=== PATIENT | female | born 1935 | race Caucasian/White ===

== ENCOUNTER 2019-01-02 09:36 | Observation (INO) | payer MEDICARE, OTHER ==
[2019-01-02 11:32] LABS: Troponin I Less than 0.010 ng/mL (< 0.028)
[2019-01-02] MEDS ORDERED: Acetaminophen 650 MG Suppository PR PRN (13:51)
[2019-01-02] MEDS ORDERED: Acetaminophen 325 MG TAB PO PRN (13:51)
[2019-01-02] MEDS ORDERED: Sodium Chloride 0.9% 1,000 ML IV SCH (14:00)
[2019-01-02] MEDS ORDERED: Nitroglycerin 2% Ointment 1 INCH/1 GM Packet ONE (14:19)
--- NOTE | 2019-01-02 15:20 | HP ---
PRIMARY CARE PHYSICIAN: Dr. Cardona. CHIEF COMPLAINT: Generalized weakness and left-sided chest discomfort. HISTORY OF PRESENT ILLNESS: Ms. Robbins is a very pleasant 83-year-old woman, who lives at home with her family and presents complaining of discomfort on the left side of her chest and back since yesterday. The patient states it is worse with movement and she finds it difficult to characterize the pain, also unable to give a severity. It shows generalized discomfort on the left side of her chest to left lateral rib cage and left shoulder, reports some discomfort in her left arm. Also, has some discomfort in the left side of her back. She reported per the ED notes that there was a heavy pressure. She states she has felt generally unwell since yesterday and feels thirsty, but has been drinking as much water as possible since yesterday. She has been around her sick daughter and grandson, who have been unwell with flu-like symptoms. She states she feels she caught whatever virus they had and has had a mild cough productive for foamy sputum. Denies having any fevers, but has had chills. Denies any hemoptysis. No shortness of breath. She underwent laboratory studies, which demonstrated a white count of 11.2, hemoglobin 14, hematocrit 43.5, platelets 309, neutrophils 69%. A D-dimer was done, which was negative. Potassium was 4.0. Sodium 143, potassium 3.9, BUN 16, creatinine 1.06, GFR 50 compared to 70s a few years ago. Glucose was 103, calcium 9.9. LFTs unremarkable. BNP normal at 98.7. Lipase normal. In the emergency department, she had an EKG done, which showed normal sinus rhythm with heart rate of 83. There is an incomplete right bundle-branch block with no ST changes or T-wave abnormalities. This was per EKG done at [facility]. A chest x-ray was done as well showing chronic interstitial changes, otherwise no acute intrathoracic abnormalities. Per [facility] ED notes, the patient was hypertensive with a blood pressure of 194/97 and she was given Lopressor 5 mg as well as aspirin 324 mg and a dose of nitroglycerin. Her blood pressure did improve in the emergency department here, she has received no additional treatment. Troponins were trended further and second troponin was negative. REVIEW OF SYSTEMS: Apart from what is mentioned above in history of present illness, the patient does report feeling generally achy. States that the discomfort on the left side of her chest and back is "sore." Also, reports having a sore throat for the last couple of days. All other review of systems are negative. PAST MEDICAL HISTORY: 1. Hypertension. 2. Chronic gastritis. 3. GERD. 4. Cataracts. 5. History of shingles in the past. 6. Osteoarthritis. 7. Chronic bronchitis. 8. Hyperlipidemia. PAST SURGICAL HISTORY: 1. Cataract surgery. 2. Ovarian tumor removed. 3. Salas cyst in the right knee. 4. Appendectomy. 5. Cholecystectomy. 6. Hysterectomy. 7. Tonsillectomy. SOCIAL HISTORY: The patient lives with her family. She denies any tobacco use, alcohol consumption, or illicit drug use. She normally mobilizes with the help of a walker. ALLERGIES: LEVAQUIN, PENICILLIN, RELAFEN. CURRENT MEDICATIONS: 1. Diltiazem 240 mg extended release 1 tablet by mouth daily. 2. Famotidine 20 mg p.o. daily. 3. Aspirin 81 mg p.o. daily. PHYSICAL EXAMINATION: GENERAL: The patient appears thin, well developed, and in no acute distress. She is resting comfortably on the stretcher. Does report mild discomfort in her back due to lying on the stretcher. VITAL SIGNS: Temperature 97.8, pulse 76, blood pressure 144/88, respirations 14, O2 sats 98% on room air. HEENT: Normocephalic, atraumatic. Pupils are equal, round, and reactive to light. Sclerae without icterus. Oropharynx is clear. Oral mucosa is dry. No posterior pharynx exudates or erythema. NECK: Supple. Full range of motion. No lymphadenopathy. LUNGS: Clear to auscultation bilaterally without any wheezes, rales, or rhonchi. CARDIAC: Regular rate and rhythm. Mild discomfort with palpation to the left side of her chest as well as lateral rib cage and especially the left posterior back with palpation. The patient reports feeling "sore." No bony deformities or bruising. No skin changes. ABDOMEN: Soft, nondistended. Mild suprapubic discomfort with palpation. No guarding or rigidity. No renal angle tenderness. EXTREMITIES: No lower leg swelling or edema. No calf tenderness. NEUROLOGIC: Alert and oriented x3. No neuro deficits. SKIN: Warm and dry. INVESTIGATIONS: As mentioned above in HPI. IMPRESSION AND PLAN: Ms. Robbins is a very pleasant 83-year-old woman, who is being admitted for management of the following; 1. Acute coronary syndrome rule out. The patient complained of left-sided chest pain described as substernal pressure while she was at [facility]. She underwent a troponin, which is negative x2. EKG unremarkable. We will continue to trend troponins. She does have a history of hyperlipidemia and hypertension. The pain does seem to be musculoskeletal in nature. We will consult Cardiology for formal assessment versus stress test in the morning. The patient is unsure when her last cardiac investigations were, she is normally seen at [facility]. 2. General malaise. The patient with flu-like symptoms. Mild leukocytosis. We will add lactic acid and procalcitonin to her labs. We will also check respiratory viral panel. 3. Suprapubic discomfort. On exam, she did have some suprapubic discomfort, and upon further questioning, she stated she is not urinating as frequently as normal, but urinating large amounts at a time without any dysuria. We will obtain urinalysis and urine culture. Hold off on antibiotics, pending results of her workup. 4. Hypertension. Monitor blood pressure and resume home medications once verified. 5. Hyperlipidemia. Resume home medications. 6. Gastrointestinal prophylaxis. The patient with a history of GERD and normally famotidine. We will continue famotidine 10 mg p.o. b.i.d. 7. Deep venous thrombosis prophylaxis. Mechanical SCDs. PT/OT consult requested, given her general weakness. 8. Code status, full. Her surrogate decision maker is her son, Rashid Garvey. The patient's case to be discussed further with Dr. Briseno for further recommendations. Job ID: [id number]
[2019-01-02 15:58] VITALS: BMI 25.7
[2019-01-02 16:42] LABS: Lactic Acid 0.7 mmol/L (0.5-2.2)
[2019-01-02 16:53] LABS: Troponin I 0.027 ng/mL (< 0.028)
[2019-01-02] MEDS ORDERED: hydrALAZINE 20 MG/ML VIAL SLOW IVP PRN (20:09)
[2019-01-02] MEDS: Famotidine 20 MG TAB PO SCH (20:28)
[2019-01-03 01:19] LABS: Bacteria/HPF None Seen HPF (None Seen); Bilirubin Negative (Negative); Blood, Urine Negative (Negative); Clarity Clear (Clear); Glucose, Urine (Dipstick) Normal (Negative); Leukocyte Negative Leu/uL (Negative); Nitrite Negative (Negative); Protein, Urine (Dipstick) Negative (Neg-Trace); RBC/HPF 0-3 HPF (0-3); Squamous Epithelial 0-3 HPF (0-3); Urobilinogen Normal mg/dL (Less than 2); WBC/HPF 0-3 HPF (0-3)
[2019-01-03 01:23] LABS: Urine Culture Reflex No No
[2019-01-03 08:39] LABS: #Basophils 0.1 thou/uL (0.0-0.2); #Eosinphils 0.1 thou/uL (0.0-0.7); #Lymphocytes 1.7 thou/uL (1.20-3.40); #Monocytes 0.9 thou/uL (0.11-0.59); #Neutrophils 7.6 thou/uL (1.40-6.50); %Basophils 0.8 % (0.0-1.0); %Eosinophils 1.3 % (0.0-10.0); %Lymphocytes 16.2 % (21.0-51.0); %Monocytes 8.5 % (0.0-10.0); %Neutrophils 73.2 % (42.0-75.0); Hemoglobin 13.2 g/dL (12.0-16.0); Mean Corpuscular HGB CONC 32.6 g/dL (32.0-36.0); Mean Corpuscular Hemoglobin 30.6 pg (27.0-31.0); Mean Corpuscular Volume 93.9 fL (78.0-98.0); Mean Platelet Volume 8.3 fL (7.4-10.4); Platelet Count 314 thou/uL (130-400); RBC Distribution Width 11.9 % (11.5-14.5); Red Blood Cell (RBC) Count 4.32 mill/uL (4.20-5.40); White Blood Cell (WBC) Count 10.3 thou/uL (4.8-10.8)
[2019-01-03] MEDS ORDERED: Aspirin 81 mg Enteric Coated Tablet PO SCH (09:00)
[2019-01-03 09:04] LABS: Anion Gap 10 mmol/L (10-20); BUN (Urea Nitrogen) 15 mg/dL (9.8-20.1); Calc. Creatinine Clearance 60 mL/min (70-130); Calcium 9.6 mg/dL (7.8-10.44); Carbon Dioxide 30 mmol/L (23-31); Cardiac Risk 2.2 (Less than 4.5); Chloride 105 mmol/L (98-107); Cholesterol 183 mg/dl (< 200 Desired); Estimated GFR-MDRD 64; Glucose 70 mg/dL (83-110); HDL Cholesterol 82 mg/dL (>60 Neg Risk); LDL Cholesterol, Calculated 92 mg/dL; Potassium 3.9 mmol/L (3.5-5.1); Sodium 141 mmol/L (136-145); Triglycerides 46 mg/dL (Less than 150)
[2019-01-03] MEDS ORDERED: ADENOSINE 60 MG/20 ML VIAL ONE (11:29)
[2019-01-03 14:26] VITALS: BP 150/78; TEMP 96.4
[2019-01-03] MEDS: Famotidine 20 MG TAB PO SCH (14:28)
--- NOTE | 2019-01-03 14:56 | NM ---
Nuclear medicine myocardial perfusion scan: 01/03/2019 COMPARISON: None HISTORY: Chest pain, history of hypertension and elevated cholesterol levels TECHNIQUE: SPECT imaging of the left ventricular myocardium obtained during stress and rest following the intravenous administration of 30 and 9.8mCi technetium 99 M labeled sestamibi respectively. FINDINGS: No discrete fixed or reversible defect. TID is 1.1. Left ventricular wall motion appears within normal limits. End-diastolic volume is 56 mL and end systolic volume is 18 mL. Left ventricular ejection fraction is estimated at 69%. IMPRESSION: No discrete reversible defect. Normal left ventricular wall motion. Estimated LVEF of 69%.
--- NOTE | 2019-01-03 17:29 | DIS ---
DATE OF ADMISSION: 01/02/2019 DATE OF DISCHARGE: 01/03/2019 DISCHARGE DISPOSITION: Home. PRIMARY DISCHARGE DIAGNOSES: 1. Chest pain, resolved. 2. Upper respiratory viral infection with rhinovirus. SECONDARY DISCHARGE DIAGNOSES: 1. Hypertension. 2. Dyslipidemia. PROCEDURES DONE DURING HOSPITALIZATION: Troponin x3 negative. Nuclear stress test done showed no reversible defect, had normal wall motion, ejection fraction was 69%. Hemoglobin 13, hematocrit 40, platelet count 314 with 73% neutrophils. Total cholesterol 183, triglycerides 46, LDL 92, HDL 82. TSH 1.70. UA was negative for any infection. Respiratory virus panel PCR was positive for rhinovirus. DISCHARGE MEDICATIONS: 1. Aspirin 81 mg p.o. daily. 2. Cardizem CD 240 mg p.o. daily. 3. Pepcid 20 mg twice daily. ALLERGIES: 1. LEVAQUIN. 2. PENICILLIN. 3. NABUMETONE. DISCHARGE PLAN: The patient to follow up with her primary care physician, Dr. Cardona, in 1 week. BRIEF COURSE DURING HOSPITALIZATION: The patient initially came in with complaints of generalized body aches and left-sided chest pain. She has had 3 sets of troponin done which were negative. Nuclear stress test done was negative as well. Respiratory virus panel PCR was positive for rhinovirus. The patient likely had acute viral illness with rhinovirus. She is hemodynamically stable and tolerating solid food prior to discharge. She lives with her daughter. She ambulates with a rolling walker. She has remained hemodynamically stable and will be shortly discharged to home. The patient needs to follow up with her primary care physician, Dr. Cardona, in 1 week. Please note I have seen and examined the patient on the day of discharge. Job ID: [id number] [facility]
--- NOTE | 2019-01-10 21:55 | EKG ---
Test Reason : Blood Pressure : / mmHG Vent. Rate : 065 BPM Atrial Rate : 065 BPM P-R Int : 184 ms QRS Dur : 096 ms QT Int : 392 ms P-R-T Axes : 064 -45 026 degrees QTc Int : 407 ms Normal sinus rhythm Incomplete right bundle branch block Left anterior fascicular block Abnormal ECG Confirmed by AUSTYN TATE DO ([id number]), editor news MAX REZA ([id number]) on 01/10/2019 9:54:33 PM Referred By: Confirmed By:AUSTYN TATE DO
== END 2019-01-03 16:27 | disposition home or self-care (01) ==
LOC: ERS 09:36 → ERHOLD 11:44 → 2SW 15:27
PROVIDERS: ADMIT Internal Medicine; ATTEND Emergency Medicine
DX: J06.9 Acute upper respiratory infection, unspecified (principal); R07.2 Precordial pain; B97.89 Other viral agents as the cause of diseases classified elsewhere; R53.81 Other malaise; I10 Essential (primary) hypertension; M19.90 Unspecified osteoarthritis, unspecified site; E78.5 Hyperlipidemia, unspecified; K29.50 Unspecified chronic gastritis without bleeding; R10.2 Pelvic and perineal pain; J42 Unspecified chronic bronchitis; Z79.82 Long term (current) use of aspirin; Z79.899 Other long term (current) drug therapy; Z88.0 Allergy status to penicillin; Z88.1 Allergy status to other antibiotic agents; Z88.8 Allergy status to other drugs, medicaments and biological substances
CPT/HCPCS: 78452; 80048; 80061; 81001; 83605; 83735; 84145; 84443; 84484; 85025; 87633; 93005; 93017; 94760; 96361 ×2; 96374; 97139; 99285; A9500; G0378 ×3; 36415; J0153; J0360

== ENCOUNTER 2019-02-20 16:43 | Inpatient (IN) | payer MEDICARE ==
[2019-02-20 17:19] LABS: #Eosinphils 0.1 thou/uL (0.0-0.7); #Lymphocytes 1.5 thou/uL (1.20-3.40); #Monocytes 0.9 thou/uL (0.11-0.59); #Neutrophils 8.2 thou/uL (1.40-6.50); %Basophils 0.3 % (0.0-1.0); %Eosinophils 1.1 % (0.0-10.0); %Lymphocytes 13.8 % (21.0-51.0); %Monocytes 8.5 % (0.0-10.0); %Neutrophils 76.4 % (42.0-75.0); Hemoglobin 13.2 g/dL (12.0-16.0); Mean Corpuscular HGB CONC 31.6 g/dL (32.0-36.0); Mean Corpuscular Hemoglobin 29.5 pg (27.0-31.0); Mean Corpuscular Volume 93.5 fL (78.0-98.0); Mean Platelet Volume 7.3 fL (7.4-10.4); Platelet Count 361 thou/uL (130-400); RBC Distribution Width 12.1 % (11.5-14.5); Red Blood Cell (RBC) Count 4.48 mill/uL (4.20-5.40); White Blood Cell (WBC) Count 10.7 thou/uL (4.8-10.8)
[2019-02-20 17:44] LABS: ALT (SGPT) 11 U/L (8-55); AST (SGOT) 14 U/L (5-34); Albumin 3.8 g/dL (3.4-4.8); Alkaline Phosphatase 122 U/L (40-110); Anion Gap 13 mmol/L (10-20); BUN (Urea Nitrogen) 15 mg/dL (9.8-20.1); Bilirubin, Total 0.3 mg/dL (0.2-1.2); Calc. Creatinine Clearance 0 mL/min (70-130); Calcium 9.4 mg/dL (7.8-10.44); Carbon Dioxide 28 mmol/L (23-31); Chloride 104 mmol/L (98-107); Estimated GFR-MDRD 66; Globulin 3.2 g/dL (2.4-3.5); Glucose 85 mg/dL (83-110); Potassium 3.9 mmol/L (3.5-5.1); Sodium 141 mmol/L (136-145)
--- NOTE | 2019-02-20 17:45 | RAD ---
Chest AP view INDICATION: Preop evaluation COMPARISON: January 02, 2019 FINDINGS: Lungs:COPD changes stable Cardiac silhouette:Mild cardiomegaly is stable. Pulmonary vasculature:Normal Pleural spaces:No pleural effusion or pneumothorax is demonstrated. Upper abdomen:No abnormality seen. Osseous structures: No acute osseous abnormality. Additional findings:None. IMPRESSION: Stable exam. No acute cardiopulmonary abnormality.
--- NOTE | 2019-02-20 18:37 | RAD ---
PELVIS ONE VIEW: 02/20/19 HISTORY: Fall. COMPARISON: CT lower extremity same day. FINDINGS: There is a right sacral fracture through what appears to be S3. The right femoral head and neck are i ntact. The obturator rings are intact. IMPRESSION: Findings suspicious for right sacral fracture of S3. POS: HOME
[2019-02-20] MEDS ORDERED: Dextrose 5% in Water 1,000 ML IV PRN (18:54)
[2019-02-20] MEDS ORDERED: hydrALAZINE 20 MG/ML VIAL SLOW IVP PRN (18:54)
[2019-02-20] MEDS ORDERED: HumaLOG 300 UNITS/3 ML VIAL SC PRN (18:54)
[2019-02-20] MEDS ORDERED: Dextrose 50% Abboject 50 ML SYRINGE SLOW IVP PRN (18:54)
--- NOTE | 2019-02-20 20:01 | HP ---
REQUESTING PHYSICIAN: Dr. Henny Bowles. CONSULTING PHYSICIAN: Dr. Mendes. ATTENDING PHYSICIAN: Eder Montana HISTORY OF PRESENT ILLNESS: Ms. Robbins is an 83-year-old female, who presents to the ED with right hip pain. The patient reports she fell approximately 2 weeks ago from a couch, hit her right hip on the floor. However, after that the patient still be able to walk around using walker with minimal pain and discomfort until yesterday, the patient experienced pain from the right hip, pain is getting worse with movement and sometimes, the patient is unable to bear weight, which urged her to seek medical advice. Upon arrival, the patient is alert, awake, GCS 15. Vital signs stable. Complains of right hip pain. REVIEW OF SYSTEMS: Noncontributory except per HPI. PAST MEDICAL HISTORY: Hypertension. PAST SURGICAL HISTORY: Includes cholecystectomy, tonsillectomy, cataract surgery, ovarian tumor removal. SOCIAL HISTORY: The patient lives at home. Denies smoking. Denies drinking alcohol and denies drug use. ALLERGIES: LEVAQUIN, LEVOFLOXACIN, AND PENICILLIN. CURRENT MEDICATIONS: Diltiazem 240 daily, famotidine, and aspirin 81 mg once a day. PHYSICAL EXAMINATION: GENERAL: The patient is lying in bed, comfortable with no acute respiratory distress. SKIN: Hall. Mucous moist. VITAL SIGNS: Heart rate is 92, respiratory rate 18, temperature 98, blood pressure 184/123, O2 saturation 95% on room air. HEENT: Atraumatic. No bruising. Nontender to palpation. Pupil 3 mm, reactive to light and equal bilaterally. NECK: Trachea midline. No tenderness to palpation. CHEST: Atraumatic, no crepitus, no bruising. LUNGS: Clear bilaterally. HEART: Regular rate and rhythm. ABDOMEN: Soft, nondistended. EXTREMITIES: Neurovascularly intact x4. Right hip pain and limited range of motion due to pain. NEUROLOGIC: No focal neurology deficits. DIAGNOSTIC STUDIES: X-ray of the right hip show right hip fracture, nondisplaced. ASSESSMENT: 1. Status post ground level fall with late presentation. 2. Right hip fracture. 3. History of hypertension. PLAN: The patient will be admitted to [place] [id number] for pain control, DVT, and gastritis prophylaxis. The patient will be n.p.o. at midnight. Dr. Mendes with the patient to the OR tomorrow for right hip fixation. After the surgery, the patient will be working with PT, OT. Anticipate placement in rehabilitation facility. Job ID: [id number] MTDD
[2019-02-20] MEDS: Famotidine/PF 20 mg/2ml Vial SLOW IVP SCH (21:40)
[2019-02-20] MEDS: Sodium Chloride 0.9% 1,000 ML IV SCH ×2 (21:41)
[2019-02-20] MEDS: traMADol HCl 50 MG TAB PO PRN (21:42)
[2019-02-20] MEDS: Senokot S 8.6-50 MG TAB PO SCH (21:43)
[2019-02-20] MEDS: Gabapentin 100 MG CAP PO SCH (21:43)
[2019-02-20 22:55] VITALS: BMI 25.5
[2019-02-21] MEDS: Acetaminophen 500 MG TAB PO SCH ×5 (00:05→23:51)
[2019-02-21] MEDS: Sodium Chloride 0.9% 1,000 ML IV SCH ×3 (06:09→12:49)
[2019-02-21] MEDS ORDERED: Morphine 2 MG/ML SYRINGE SLOW IVP PRN (07:57)
[2019-02-21] MEDS: Gabapentin 100 MG CAP PO SCH ×4 (08:26→20:11)
[2019-02-21] MEDS: Famotidine/PF 20 mg/2ml Vial SLOW IVP SCH ×2 (08:26→20:09)
[2019-02-21] MEDS: Polyethylene Glycol 3350 17 GM Packet PO SCH (08:35)
[2019-02-21] MEDS: Senokot S 8.6-50 MG TAB PO SCH ×3 (08:35→20:12)
[2019-02-21] MEDS ORDERED: Clindamycin/D5W 900 mg/50 ml Premix Bag ONE (10:06)
[2019-02-21] MEDS ORDERED: Midazolam HCl 2 mg/2 ml Vial ONE (10:09)
[2019-02-21] MEDS ORDERED: Fentanyl 100 MCG/2 ML VIAL ONE ×2 (10:46→12:21)
[2019-02-21] MEDS ORDERED: Phenylephrine HCL 10 MG/ML VIAL ONE (10:47)
[2019-02-21] MEDS ORDERED: Neomycin-Polymyxin 1 ML AMP ONE (10:50)
[2019-02-21] MEDS ORDERED: Promethazine HCl 25 MG/ML VIAL IM PRN (11:39)
[2019-02-21] MEDS ORDERED: PACU-Morphine 4MG/ML VIAL SLOW IVP PRN (11:39)
[2019-02-21] MEDS ORDERED: Promethazine HCl 25 MG/ML VIAL SLOW IVP PRN (11:39)
[2019-02-21] MEDS ORDERED: Ondansetron HCl/PF 4 MG/2 ML Vial IVP PRN (11:39)
[2019-02-21] MEDS ORDERED: Ondansetron ODT 4 MG TAB PO PRN (11:47)
[2019-02-21] MEDS ORDERED: Bisacodyl 10 MG SUPP PR PRN (11:47)
[2019-02-21] MEDS ORDERED: Cepastat Lozenges 1 LOZ PO PRN (11:47)
[2019-02-21] MEDS ORDERED: Fleet Enema 133 ML BOT PR PRN (11:47)
[2019-02-21] MEDS ORDERED: Ondansetron PF 4 MG/2 ML Vial IVP PRN (11:47)
[2019-02-21] MEDS ORDERED: Milk Of Magnesia 30 ML UDCUP PO PRN (11:47)
[2019-02-21] MEDS ORDERED: SUGAMMADEX SODIUM 200 MG/2 ML VIAL ONE (11:48)
[2019-02-21] MEDS ORDERED: PROPOFOL 200 MG/20 ML VIAL ONE (11:55)
[2019-02-21] MEDS ORDERED: Rocuronium Bromide 10 MG/ML (10ML VIAL) ONE (11:55)
[2019-02-21] MEDS ORDERED: Glycopyrrolate 0.2 MG/ML 5 ML SYRINGE ONE (11:55)
[2019-02-21] MEDS ORDERED: Lidocaine 1% PF 5 ML VIAL ONE (11:55)
[2019-02-21] MEDS: Ketorolac Tromethamine 30 MG/ML VIAL IVP SCH ×3 (12:46→23:51)
[2019-02-21] MEDS: Ondansetron PF 4 MG/2 ML Vial IVP PRN (12:46)
[2019-02-21] MEDS: Clindamycin/D5W 900 MG in Premix Bag 1 BAG IVPB SCH ×2 (12:47→18:46)
--- NOTE | 2019-02-21 16:05 | OP ---
DATE OF PROCEDURE: 02/21/2019 PREOPERATIVE DIAGNOSIS: Impacted femoral neck fracture of the right hip. POSTOPERATIVE DIAGNOSIS: Impacted femoral neck fracture of the right hip. PROCEDURE PERFORMED: Multiple pinning of impacted femoral neck fracture of the right hip. ANESTHESIA: General. DESCRIPTION OF PROCEDURE: The patient was given preoperative IV antibiotics, taken to the operating room, placed in the supine position on the fracture table. Satisfactory general anesthesia was performed. C-arm verified good alignment of the impacted subcapital femoral neck fracture in the lateral aspect of the right hip and thigh was sterilely prepped. A 2-cm incision was made on the lateral aspect of the thigh and under fluoroscopic visualization, two guide pins were placed up through the lateral cortex and through the femoral neck and into the femoral head. Appropriate size screws were measured and the 6.5 cannulated screws were inserted with good fixation in the bone. It was made sure that the tips of the screws were within the femoral head using the C-arm in AP and lateral planes while maximally internally and externally rotating the hip. The guide pins were removed. The wound was irrigated and then closed using 2-0 Vicryl for the fatty layer and the skin was closed with 3-0 Rapide. Sterile dressing was applied. The patient was taken off the fracture table. She was awakened, extubated, and transferred to recovery room in stable condition. ESTIMATED BLOOD LOSS: Minimal. COMPLICATIONS: None. Job ID: [id number]
[2019-02-21] MEDS: Ferrous Gluconate 324 MG TAB PO SCH (20:09)
[2019-02-21] MEDS: Famotidine 20 MG TAB PO SCH (20:11)
[2019-02-21] MEDS ORDERED: Prevnar 13-Val Conj/PF 0.5 ML SYRINGE IM ONE (21:00)
[2019-02-21] MEDS ORDERED: FLU VACC TS2019-20(65YR UP)/PF 180 MCG/0.5 ML SYRINGE IM ONE (21:00)
[2019-02-22] MEDS: Sodium Chloride 0.9% 1,000 ML IV SCH ×4 (00:52→20:58)
[2019-02-22 05:12] LABS: Hemoglobin 11.8 g/dL (12.0-16.0); Mean Corpuscular HGB CONC 32.5 g/dL (32.0-36.0); Mean Corpuscular Hemoglobin 30.9 pg (27.0-31.0); Platelet Count 321 thou/uL (130-400); Red Blood Cell (RBC) Count 3.81 mill/uL (4.20-5.40); White Blood Cell (WBC) Count 9.9 thou/uL (4.8-10.8)
[2019-02-22] MEDS: Ketorolac Tromethamine 30 MG/ML VIAL IVP SCH ×2 (05:30→12:00)
[2019-02-22] MEDS: Acetaminophen 500 MG TAB PO SCH ×4 (05:30→23:38)
--- NOTE | 2019-02-22 06:00 | PRG ---
DATE OF SERVICE: 02/22/2019 SUBJECTIVE: The patient is currently on the surgical floor. She is status post ground level fall who presented delayed fashion. The original injury may have been as long as two weeks ago. Today, she underwent open reduction and internal fixation of her impacted femoral neck fracture of the right hip. Procedure was multiple pinning. She tolerated this procedure well. Postoperatively, the nurses report no issues. Her vital signs remained stable. She did take some liquids and reports that her pain is controlled. OBJECTIVE: VITAL SIGNS: Stable. The patient is afebrile. GENERAL: The patient is resting comfortably in bed. She appears in no distress. Her respirations appear nonlabored. Her postop dressing is clean, dry, and intact. She was asleep, and I did not awaken her for an exam. ASSESSMENT: 1. Status post ground level fall with delayed presentation. 2. Status post multiple pinning of impacted femoral neck fracture of right hip. 3. History of hypertension. PLAN: Plan will be to continue supportive care. Encourage physical and occupational therapy and discuss placement. Job ID: [id number]
[2019-02-22] MEDS: Multivitamin W/ Minerals 1 TAB PO SCH (08:52)
[2019-02-22] MEDS: Famotidine 20 MG TAB PO SCH ×2 (08:52→20:13)
[2019-02-22] MEDS: Ferrous Gluconate 324 MG TAB PO SCH ×2 (08:52→20:14)
[2019-02-22] MEDS: Gabapentin 100 MG CAP PO SCH ×3 (08:53→20:14)
[2019-02-22] MEDS: Polyethylene Glycol 3350 17 GM Packet PO SCH (08:53)
[2019-02-22] MEDS: Senokot S 8.6-50 MG TAB PO SCH ×4 (08:53→20:14)
[2019-02-22] MEDS: Famotidine/PF 20 mg/2ml Vial SLOW IVP SCH (08:57)
[2019-02-22] MEDS ORDERED: Aspirin 81 mg Enteric Coated Tablet PO SCH (09:00)
--- NOTE | 2019-02-22 12:46 | PRG ---
DATE OF SERVICE: 02/22/2019 SUBJECTIVE: Ms. Robbins is an 83-year-old female, status post ground level fall. She sustained impacted right hip fracture. She underwent ORIF of right hip fracture yesterday with Orthopedic, Dr. Mendes. Postop, the patient reports pain is well controlled. She is able to walk around the floor with Physical Therapy. Vital signs are stable. Her urine is adequate, but she has not yet had bowel. She tolerated her regular diet. OBJECTIVE: GENERAL: The patient is lying in bed comfortable with no acute respiratory distress. VITAL SIGNS: Stable. LUNGS: Clear bilaterally. HEART: Regular rate and rhythm. ABDOMEN: Soft and nondistended. EXTREMITIES: Right hip postop dressing clean, dry, and intact. ASSESSMENT: 1. Status post ground level fall with delayed presentation. 2. Right impacted femoral neck fracture, status post open reduction and internal fixation of right hip fracture. 3. History of hypertension, stable. PLAN: Will be to continue supportive care. Continue pain control. Continue DVT prophylaxis. Anticipate placement in rehabilitation facility. Job ID: [id number]
[2019-02-22] MEDS: traMADol HCl 50 MG TAB PO PRN (15:54)
--- NOTE | 2019-02-22 18:41 | RAD ---
EXAM: XR Hip Rt 2-3 View DATE: 02/21/2019 12:00 AM INDICATION: Right hip pinning COMPARISON: CT of the pelvis dated February 20, 2019 FINDING: Since the comparison examination there is an interval percutaneous pinning of the nondispla willard right femoral neck fracture. Total fluoroscopic time was 83.8 seconds. 2 fluoroscopic spot images of the right hip were submitted for interpretation. IMPRESSION:Percutaneous pinning of the nondisplaced right femoral neck fracture.
[2019-02-22] MEDS: Aspirin 81 mg Enteric Coated Tablet PO SCH (20:14)
--- NOTE | 2019-02-22 20:50 | PRG ---
DATE OF SERVICE: 02/22/2019 SUBJECTIVE: Ms. Robbins underwent multiple pinning of an impacted right femoral neck fracture yesterday. The patient states that she has very little pain. She was able to ambulate in her room with physical therapy this morning. OBJECTIVE: VITAL SIGNS: Latest vital signs show the patient is afebrile, pulse 73, respiratory rate 18, blood pressure 168/96. LABORATORY DATA: Hemoglobin 11.8, hematocrit 36.2. PLAN: The patient will continue to work with Physical and Occupational Therapy. I discussed with the patient and her family her post hospitalization plans. They feel that if she continues to do as well as she has today that she may want to go home with home physical therapy. The other alternative would be to go to a correction facility for a while. Job ID: [id number]
--- NOTE | 2019-02-23 02:11 | PRG ---
DATE OF SERVICE: 02/23/2019 SUBJECTIVE: The patient is currently on the surgical floor. She is status post multiple pinning of a right femoral neck fracture. She has been working and progressing well with therapy and by report, she is likely to be discharged home with home health. Her pain is controlled. She is tolerating a diet. PHYSICAL EXAMINATION: VITAL SIGNS: Stable. The patient is afebrile. GENERAL: The patient is currently resting in bed. She is asleep. I did not waking her for exam. She appears comfortable and her respirations appear nonlabored. ASSESSMENT: 1. Status post ground level fall with delayed presentation. 2. Status post multiple pinning of impacted right femoral neck fracture. 3. History of hypertension. PLAN: Plan will be to continue supportive care. Encourage physical and occupational therapy and await final placement decision. The patient will follow up with Dr. Mendes per his instructions. Job ID: [id number]
[2019-02-23] MEDS: Acetaminophen 500 MG TAB PO SCH ×4 (05:47→23:20)
[2019-02-23] MEDS: traMADol HCl 50 MG TAB PO PRN (06:00)
[2019-02-23] MEDS: Sodium Chloride 0.9% 1,000 ML IV SCH ×2 (06:47→12:26)
[2019-02-23] MEDS ORDERED: Labetalol HCl 100 MG/20 ML VIAL SLOW IVP SCH (08:15)
[2019-02-23] MEDS: Aspirin 81 mg Enteric Coated Tablet PO SCH ×2 (08:25→20:35)
--- NOTE | 2019-02-23 08:55 | PRG ---
DATE OF SERVICE: 02/21/2019 SUBJECTIVE: Ms. Robbins is an 83-year-old female, status post ground level fall. She sustained right hip fracture. Currently, the patient in the surgical floor for pain control, DVT and gastritis prophylaxis. Await for right hip fracture fixation with Orthopedic. The patient reports pain is well controlled. She was n.p.o. and her vital signs x2 have been stable. She voiced no concern. OBJECTIVE: GENERAL: Currently, the patient is lying in bed, comfortable with no acute respiratory distress. VITAL SIGNS: Temperature is 97.5, heart rate 73, respiratory rate 18, O2 saturation 95% on room air, and blood pressure is 171/90. LUNGS: Clear bilaterally. HEART: Regular rate and rhythm. ABDOMEN: Soft, nondistended. EXTREMITIES: Neurovascularly intact x4. NEUROLOGY: No focal neurology deficits. ASSESSMENT: 1. Status post ground level fall with delayed presentation. 2. Right impacted femoral neck fracture. 3. History of hypertension. PLAN: We will continue supportive care. Continue pain control. N.p.o. for now. After the surgery, the patient will be working with PT, OT. Anticipate placement in rehabilitation facility. Job ID: [id number]
[2019-02-23] MEDS: Ondansetron PF 4 MG/2 ML Vial IVP PRN (10:12)
[2019-02-23] MEDS: Ferrous Gluconate 324 MG TAB PO SCH ×2 (12:25→20:35)
[2019-02-23] MEDS: Gabapentin 100 MG CAP PO SCH ×3 (12:25→20:37)
[2019-02-23] MEDS: Multivitamin W/ Minerals 1 TAB PO SCH (12:26)
[2019-02-23] MEDS: Polyethylene Glycol 3350 17 GM Packet PO SCH (12:26)
[2019-02-23] MEDS: Senokot S 8.6-50 MG TAB PO SCH ×2 (12:26→20:37)
[2019-02-23] MEDS: Famotidine 20 MG TAB PO SCH ×2 (16:34→20:35)
--- NOTE | 2019-02-23 17:43 | PRG ---
DATE OF SERVICE: 02/23/2019 SUBJECTIVE: Ms. Robbins is an 83-year-old female, status post ground level fall. She sustained an impacted right hip fracture and underwent ORIF of right hip fracture, postoperative day 2. Postoperatively, the patient reports pain is well controlled, able to walk around the floor with physical therapy. Vital signs have been stable. She tolerated with her regular diet. Her urine is adequate. She is able to have 1 bowel movement today. OBJECTIVE: GENERAL: The patient is lying in bed comfortable with no acute respiratory distress. VITAL SIGNS: Temperature 97.7, heart rate 77, respiratory rate 18, O2 saturation 94% on room air, blood pressure 162/77. LUNGS: Clear bilaterally. HEART: Regular rate and rhythm. ABDOMEN: Soft and nondistended. EXTREMITIES: Neurovascularly intact x4. NEUROLOGIC: No focal neurological deficits. ASSESSMENT: 1. Status post ground level fall. 2. Right femur neck fracture, status post open reduction and internal fixation of right femur neck fracture, postoperative day 2. 3. History of hypertension. PLAN: Continue supportive care. Continue pain control. Continue DVT prophylaxis. Await for insurance approval for home health, so that the patient can be discharged home with home health. The patient was seen and evaluated with Dr. Corado on round this morning. Job ID: [id number]
--- NOTE | 2019-02-23 18:54 | PRG ---
DATE OF SERVICE: 02/23/2019 Ms. Robbins is 2 days status post multiple pinning of impacted femoral neck fracture of the right hip. The patient has been doing well. She has very little pain. She has been getting up and ambulating with the nurses and with physical therapy. The patient has been afebrile. Last vital sign shows pulse 77 and blood pressure 185/92. The incision on the lateral aspect of the right hip is healing very well. There is no swelling, erythema, or drainage. Plan is to discharge to go home with home Physical Therapy and Occupational Therapy. She has a family member, so I feel this is a good plan, probably would be able to be discharged tomorrow. Job ID: [id number]
--- NOTE | 2019-02-23 23:40 | PRG ---
DATE OF SERVICE: 02/23/2019 SUBJECTIVE: The patient is currently on the surgical floor. She is status post delayed presentation of right femoral neck fracture. She has undergone multiple pinning of that fracture and she has tolerated that well. She has been progressing with physical and occupational therapy and she is currently awaiting insurance approval for discharge home with home health. The patient reports she is tolerating a diet and her pain is controlled. PHYSICAL EXAMINATION: VITAL SIGNS: Stable. The patient is afebrile. GENERAL: The patient is resting comfortably in bed. She is awake, alert, and oriented x3. [place] Coma Scale is 15. She appears in no distress. CHEST: Her respiration nonlabored. SKIN: Her postop dressing is clean, dry, and intact. ASSESSMENT/PLAN: 1. Status post ground level fall with delayed presentation. 2. Status post multiple pinning of impacted right femoral neck fracture. 3. History of hypertension. PLAN: Plan will be to continue supportive care and await final placement decisions. Job ID: [id number]
[2019-02-24] MEDS: Sodium Chloride 0.9% 1,000 ML IV SCH (03:59)
[2019-02-24] MEDS: Acetaminophen 500 MG TAB PO SCH ×2 (04:44→12:41)
[2019-02-24 08:56] VITALS: TEMP 97.8
[2019-02-24] MEDS: Ferrous Gluconate 324 MG TAB PO SCH (09:18)
[2019-02-24] MEDS: Gabapentin 100 MG CAP PO SCH ×2 (09:18→09:20)
[2019-02-24] MEDS: Aspirin 81 mg Enteric Coated Tablet PO SCH (09:18)
[2019-02-24] MEDS: Famotidine 20 MG TAB PO SCH (09:18)
[2019-02-24] MEDS: Senokot S 8.6-50 MG TAB PO SCH (09:19)
[2019-02-24] MEDS: Multivitamin W/ Minerals 1 TAB PO SCH (09:19)
[2019-02-24] MEDS: Polyethylene Glycol 3350 17 GM Packet PO SCH (09:19)
[2019-02-24 12:21] VITALS: BP 152/87
--- NOTE | 2019-02-24 14:05 | DIS ---
DATE OF ADMISSION: 02/20/2019 DATE OF DISCHARGE: 02/24/2019 ADMISSION DIAGNOSES: Fall from couch two weeks before presentation and right femoral neck fracture. DISCHARGE DIAGNOSES: Fall from couch two weeks before presentation and right femoral neck fracture. CONSULTING PHYSICIAN: Dr. Mendes of Orthopedic Surgery. PROCEDURES: The patient went to the OR on February 21, 2019 and had multiple pinning of the impacted left femoral neck fracture. HOSPITAL COURSE: The patient is an 83-year-old female who presented to the emergency department via EMS after she had increased pain in her right hip. The patient reported she fell two weeks before presentation and the pain had significantly increased. She was subsequently admitted to the hospital for a right femoral neck fracture. She went to the OR the next day with Dr. Mendes of Orthopedic Surgery and had multiple pinning of the impacted right femoral neck fracture. Postoperatively, she worked with Physical and Occupational Therapy. She was restarted on all of her home medications. At the time of discharge, the patient's pain was well controlled. She was tolerating regular diet and she was voiding without difficulty. She also did have a bowel movement before discharge. The patient has good family support, and she was discharged with home physical therapy as well as follow up with Dr. Mendes. DISCHARGE DISPOSITION: Home with home physical therapy. DISCHARGE CONDITION: Satisfactory. PHYSICAL EXAMINATION: VITAL SIGNS: Temperature 97.8, pulse 78, respirations 16, oxygen saturation 93% on room air, and blood pressure 152/87. GENERAL: Well-appearing elderly female, sitting up in chair with no signs of acute distress. PULMONARY: Equal chest rise and fall. Clear breath sounds bilaterally. No signs of acute respiratory distress. CARDIAC: Regular rate and rhythm. GASTROINTESTINAL: Soft, nontender, and nondistended. EXTREMITIES: 2+ pulses in all extremities. Gross motor and sensation are intact. No significant swelling noted. NEUROLOGIC: GCS is 15. DISCHARGE INSTRUCTIONS: The patient was discharged home with home health. Activity as tolerated. Weightbearing as tolerated in all extremities. She has a regular diet. She will have home physical therapy as well as incentive spirometry and walker. DISCHARGE MEDICATIONS: Include: 1. Tylenol. 2. Aspirin. 3. Cardizem. 4. Pepcid. 5. MiraLAX. 6. Tramadol. FOLLOWUP APPOINTMENTS: The patient will follow up with Dr. Mendes in clinic. There is no need to follow up in Trauma Clinic with Dr. Corado. This is a summary of the patient's hospitalization. For full details, please see her medical record in its entirety. Job ID: [id number]
--- NOTE | 2019-02-25 13:35 | EKG ---
Test Reason : C/O CHEST PAIN Blood Pressure : / mmHG Vent. Rate : 073 BPM Atrial Rate : 073 BPM P-R Int : 178 ms QRS Dur : 100 ms QT Int : 388 ms P-R-T Axes : 070 -53 058 degrees QTc Int : 427 ms Normal sinus rhythm Left anterior fascicular block Abnormal ECG When compared with ECG of 20-FEB-2019 19:01, (Unconfirmed) Right bundle branch block is no longer Present Confirmed by FELIPE KELLER (2) on 02/25/2019 1:35:42 PM Referred By: NISREEN Confirmed By:FELIPE KELLER
== END 2019-02-24 15:28 | disposition home health service (06) | DRG 482 ==
LOC: ERS 16:43 → SJJU 20:50
PROVIDERS: ADMIT Specialist; ATTEND Specialist
PROC: 0QS634Z Reposition Right Upper Femur with Internal Fixation Device, Percutaneous Approach (ICD-10-PCS; principal; 2019-02-21)
DX: S72.001A Fracture of unspecified part of neck of right femur, initial encounter for closed fracture (principal); W18.39XA Other fall on same level, initial encounter; I10 Essential (primary) hypertension; Z90.49 Acquired absence of other specified parts of digestive tract; Z98.49 Cataract extraction status, unspecified eye; Z88.1 Allergy status to other antibiotic agents; Z88.0 Allergy status to penicillin; Y93.89 Activity, other specified
CPT/HCPCS: 36415; 36416; 71045; 72170; 76000; 84484; 85027; 93005; 93010; C1713; C1769; G0390; J0360; J1885; J2001; J2250; J2370; J2405; J2704; J3010; J3490; S0028

== ENCOUNTER 2019-03-08 02:30 | Inpatient (IN) | payer MEDICARE ==
[2019-03-08] MEDS ORDERED: traMADol HCl 50 MG TAB ONE (02:53)
[2019-03-08 04:43] LABS: #Basophils 0.1 thou/uL (0.0-0.2); #Eosinphils 0.1 thou/uL (0.0-0.7); #Lymphocytes 1.8 thou/uL (1.20-3.40); #Monocytes 1.2 thou/uL (0.11-0.59); %Basophils 0.6 % (0.0-1.0); %Eosinophils 0.6 % (0.0-10.0); %Lymphocytes 13.8 % (21.0-51.0); %Neutrophils 75.9 % (42.0-75.0); Hemoglobin 12.6 g/dL (12.0-16.0); Mean Corpuscular HGB CONC 32.5 g/dL (32.0-36.0); Mean Corpuscular Hemoglobin 30.8 pg (27.0-31.0); Mean Corpuscular Volume 94.7 fL (78.0-98.0); Mean Platelet Volume 6.9 fL (7.4-10.4); Platelet Count 424 thou/uL (130-400); RBC Distribution Width 12.3 % (11.5-14.5); White Blood Cell (WBC) Count 13.1 thou/uL (4.8-10.8)
[2019-03-08 05:08] LABS: ALT (SGPT) 8 U/L (8-55); AST (SGOT) 25 U/L (5-34); Albumin 3.3 g/dL (3.4-4.8); Alkaline Phosphatase 112 U/L (40-110); Anion Gap 15 mmol/L (10-20); BUN (Urea Nitrogen) 17 mg/dL (9.8-20.1); Bilirubin, Total 0.5 mg/dL (0.2-1.2); Calc. Creatinine Clearance 0 mL/min (70-130); Calcium 9.1 mg/dL (7.8-10.44); Carbon Dioxide 26 mmol/L (23-31); Chloride 101 mmol/L (98-107); Estimated GFR-MDRD 72; Globulin 3.3 g/dL (2.4-3.5); Glucose 87 mg/dL (83-110); Potassium 3.5 mmol/L (3.5-5.1); Protein, Total 6.6 g/dL (6.0-8.3); Sodium 138 mmol/L (136-145)
[2019-03-08] MEDS ORDERED: Cyclobenzaprine 10 MG TAB PO PRN (05:31)
[2019-03-08] MEDS ORDERED: traMADol HCl 50 MG TAB PO PRN ×3 (05:31→14:59)
[2019-03-08] MEDS ORDERED: Ondansetron PF 4 MG/2 ML Vial IVP PRN ×2 (05:31→15:00)
[2019-03-08] MEDS ORDERED: Dextrose 50% Abboject 50 ML SYRINGE SLOW IVP PRN (05:31)
[2019-03-08] MEDS ORDERED: Ondansetron ODT 4 MG TAB PO PRN ×2 (05:31→15:00)
[2019-03-08] MEDS ORDERED: Morphine 2 MG/ML SYRINGE SLOW IVP PRN (05:31)
[2019-03-08] MEDS ORDERED: hydrALAZINE 20 MG/ML VIAL SLOW IVP PRN (05:31)
[2019-03-08] MEDS ORDERED: Dextrose 5% in Water 1,000 ML IV PRN (05:31)
[2019-03-08 05:40] VITALS: BMI 25.2
--- NOTE | 2019-03-08 06:02 | HP ---
REQUESTING PHYSICIAN: Dr. Eric. CONSULTATIONS: Orthopedics, Dr. Mendes. HISTORY OF PRESENT ILLNESS: The patient is an 83-year-old woman, who presented to the emergency department with a chief complaint of right hip pain. The patient denied any trauma, but she was recently admitted to our facility for a right femoral neck fracture that underwent percutaneous pinning and she had been discharged on 02/24. She has been working with home physical therapy and progressing. Two to three days ago, she started having some right hip pain that became unbearable tonight and she was brought to the emergency department, where she underwent evaluation and examination and was noted to have a proximal femur fracture just inferior to her percutaneous pins. We have been asked to admit the patient and obtain orthopedic consultation. Dr. Mendes has been notified and he will come see the patient today. ALLERGIES: LEVAQUIN, PENICILLIN, RELAFEN. CURRENT MEDICATIONS: 1. Diltiazem. 2. Amantadine. 3. Aspirin. PAST MEDICAL HISTORY: Gastroesophageal reflux disease, cataracts, shingles, osteoarthritis, chronic bronchitis, hypertension. PAST SURGICAL HISTORY: Cholecystectomy, tonsillectomy, cataract surgery, ovarian tumor removal, right hip percutaneous pin placement. SOCIAL HISTORY: The patient denies drug, tobacco, or alcohol use. She lives at home independently. She has been ambulating with a walker. REVIEW OF SYSTEMS: A 10-point review of systems is negative as otherwise stated. PHYSICAL EXAMINATION: VITAL SIGNS: Blood pressure 164/82, heart rate 83, respirations 18, oxygen saturations 93% on room air, and temperature is 98.5. GENERAL: The patient is resting comfortably in bed. She is awake, alert, and oriented x3. [place] Coma Scale is 15. HEENT: Head is normocephalic, atraumatic. Eyes, extraocular motion intact. PERRLA bilaterally. Ears are atraumatic without discharge. Nose is atraumatic without discharge. Oropharynx is clear. NECK: Nontender. Trachea is midline. CHEST: Clear to auscultation bilaterally with good inspiratory and expiratory effort. HEART: Regular rate and rhythm. ABDOMEN: Soft, flat, nontender with active bowel sounds. PELVIS: Stable with tenderness to palpation to the right hip consistent with her fracture. EXTREMITIES: Neurovascularly intact x4. BACK: By report is atraumatic and nontender. LABORATORY DATA: White blood cell count 13.1, hemoglobin 12.6, hematocrit 38.9, platelets 424. Sodium 138, potassium 3.5, chloride 101, CO2 of 26, BUN 17, creatinine 0.77, glucose 87, total bilirubin 0.5, AST 25, ALT 8, alkaline phosphatase 112. RADIOGRAPHIC REPORTS: AP pelvis shows a nondisplaced fracture of the proximal femur. Views of the right hip again demonstrate a nondisplaced fracture of the right proximal femur. ASSESSMENT: 1. Status post closed reduction and percutaneous pinning on 02/21/2019. 2. Acute nondisplaced proximal femur fracture. 3. History of hypertension, gastroesophageal reflux disease, chronic bronchitis, osteoarthritis, cataracts, and shingles. PLAN: Plan will be to admit the patient to the surgical floor. She will be kept n.p.o. until Dr. Mendes sees her and makes surgical decision. We will do pulmonary toilet, pain control, mechanical VTE prophylaxis, and gastritis prophylaxis. The evaluation, examination, laboratory, and radiographic findings were discussed with Dr. Alvarado after this dictation. Job ID: [id number]
[2019-03-08] MEDS: Ibuprofen 600 MG TAB PO SCH ×3 (06:10→21:22)
[2019-03-08] MEDS: Acetaminophen 325 MG TAB PO SCH ×2 (06:10→12:08)
[2019-03-08] MEDS: Sodium Chloride 0.9% 1,000 ML IV SCH ×3 (06:11→15:32)
--- NOTE | 2019-03-08 07:48 | RAD ---
Exam: Single view of the pelvis HISTORY: Right hip pain. Right hip surgery 3 weeks ago COMPARISON: 02/20/2019 FINDINGS: A single view the pelvis shows no evidence of acute fracture or dislocation. Screws are see n in the proximal right femur from prior fracture repair. No perihardware lucency is seen. No degenerative changes seen in either hip. IMPRESSION: No evidence of acute osseous abnormality.
--- NOTE | 2019-03-08 07:52 | RAD ---
EXAM: 2 views of the right hip HISTORY: Right hip pain. Right hip surgery 3 weeks ago COMPARISON: 02/21/2019 FINDINGS: 2 views of the right hip shows screws in the right proximal femur from prior fracture repai r. There is a lucency extending just beneath the screws into the proximal diaphysis of the femur which may represent a minimally displaced fracture. This could also represent a vascular channel. No perihardware lucency is seen. No degenerative changes are seen. No soft tissue swelling is present. IMPRESSION: Status post screw fixation of the proximal right femur with lucency just beneath the scre ws extending to the diaphysis of the femur. This could represent a vascular channel or nondisplaced fracture.
[2019-03-08] MEDS: Famotidine 20 MG TAB PO SCH ×3 (08:06→21:18)
[2019-03-08] MEDS ORDERED: Lidocaine 1% PF 5 ML VIAL ONE (09:07)
[2019-03-08] MEDS ORDERED: PROPOFOL 200 MG/20 ML VIAL ONE (09:07)
[2019-03-08] MEDS ORDERED: ePHEDrine/0.9% NaCl/PF SYRINGE 50 mg/10 ml ONE (09:07)
[2019-03-08] MEDS ORDERED: CEFAZOLIN 2 GM in Premix Bag 1 BAG IVPB SCH (09:30)
[2019-03-08] MEDS ORDERED: Clindamycin/D5W 900 mg/50 ml Premix Bag ONE (12:12)
--- NOTE | 2019-03-08 12:16 | PRG ---
DATE OF SERVICE: 03/08/2019 SUBJECTIVE: Ms. Robbins is 83-year-old female, status post closed reduction and percutaneous pinning on February 21. The patient is admitted with right hip pain and she sustained proximal femur fracture right below the pinning. She has a history of hypertension, gastritis, reflux, and chronic bronchitis. The patient reports pain is well controlled. She developed no fever or shortness of breath. Vital signs have been stable. Dr. Mendes will take the patient to the OR this morning for right femur fracture fixation. OBJECTIVE: GENERAL: The patient is lying in bed comfortable with no acute respiratory distress. VITAL SIGNS: Temperature 97.9, heart rate 80, respiratory rate 14, O2 saturation 96 on room air, and blood pressure 170/85. LUNGS: Clear bilaterally. HEART: Regular rate and rhythm. ABDOMEN: Soft and nondistended. EXTREMITIES: Neurovascularly intact x4. NEUROLOGIC: No focal neurology deficits. ASSESSMENT: Status post fall with right hip fracture with closed reduction and percutaneous pinning, acute nondisplaced proximal femur fracture, with history of hypertension, gastroesophageal reflux disease, chronic bronchitis, cataract, and shingles. PLAN: The patient will go to OR with Dr. Mendes for right proximal femur fracture fixation. Postop, the patient will need to work with PT and OT. Anticipate placement in rehabilitation facility. Continue DVT prophylaxis, gastritis prophylaxis, and pain control. Job ID: [id number]
[2019-03-08] MEDS ORDERED: Neomycin-Polymyxin 1 ML AMP ONE ×2 (12:50→15:13)
[2019-03-08] MEDS ORDERED: Fentanyl 100 MCG/2 ML VIAL ONE ×3 (13:11→15:24)
[2019-03-08] MEDS ORDERED: Phenylephrine HCL 10 MG/ML VIAL ONE (13:11)
[2019-03-08] MEDS ORDERED: Bupivacaine PF 0.5% 30 ML VIAL ONE (14:31)
[2019-03-08] MEDS ORDERED: EPINEPHrine 1 MG/ML AMP ONE (14:31)
[2019-03-08] MEDS ORDERED: EPINEPHrine 1 MG/10 ML Abboject SYRINGE ONE (14:32)
--- NOTE | 2019-03-08 14:50 | RAD ---
EXAM: 2 views of the right femur HISTORY: Right femur fracture COMPARISON: 03/08/2019 3:23 AM FINDINGS: 2 views of the right femur shows interval placement of an intramedullary adarsh down the femur and removal of at least one of the previously seen screws in the femoral neck. No perihardware lucency is seen. IMPRESSION: Status post ORIF of proximal femur fracture.
[2019-03-08] MEDS ORDERED: Promethazine HCl 25 MG/ML VIAL SLOW IVP PRN (14:51)
[2019-03-08] MEDS ORDERED: Ondansetron HCl/PF 4 MG/2 ML Vial IVP PRN (14:51)
[2019-03-08] MEDS ORDERED: Promethazine HCl 25 MG/ML VIAL IM PRN (14:51)
[2019-03-08] MEDS ORDERED: Cepastat Lozenges 1 LOZ PO PRN (15:00)
[2019-03-08] MEDS ORDERED: Milk Of Magnesia 30 ML UDCUP PO PRN (15:00)
[2019-03-08] MEDS ORDERED: Fleet Enema 133 ML BOT PR PRN (15:00)
[2019-03-08] MEDS ORDERED: Acetaminophen 325 MG TAB PO PRN (15:00)
[2019-03-08] MEDS ORDERED: Bisacodyl 10 MG SUPP PR PRN (15:00)
[2019-03-08] MEDS ORDERED: Morphine 4 MG/ML VIAL SLOW IVP PRN (15:21)
[2019-03-08] MEDS ORDERED: Promethazine HCl 25 MG/ML VIAL ONE (15:33)
--- NOTE | 2019-03-08 16:12 | HP ---
CHIEF COMPLAINT: Right hip pain. HISTORY OF PRESENT ILLNESS: The patient is an 83-year-old female, who about a month ago fell and was having some hip pain. X-rays did not show definite fracture. She was started with physical therapy and then over the last night, she started having excruciating pain. Now, repeat films show a nondisplaced fracture of the proximal femur. PAST MEDICAL HISTORY: Gastroesophageal reflux, cataracts, shingles, and hypertension. PAST SURGICAL HISTORY: Cholecystectomy, tonsillectomy, cataract surgery, ovarian cystectomy, and a right hip pin placement. SOCIAL HISTORY: No tobacco or alcohol. PHYSICAL EXAMINATION: VITAL SIGNS: Temperature 97.9, pulse 80, and blood pressure 177/85. GENERAL: She is awake, alert, in no apparent distress. HEENT: Unremarkable. LUNGS: Clear. HEART: Regular rate and rhythm. ABDOMEN: Soft, nontender. Good bowel sounds. She has some tenderness in the right hip. ASSESSMENT: Recurrent femoral neck fracture. PLAN: Per Orthopedics. Job ID: [id number]
[2019-03-08] MEDS: Ketorolac Tromethamine 30 MG/ML VIAL IM SCH ×2 (18:04→23:08)
[2019-03-08] MEDS: Acetaminophen 500 MG TAB PO SCH ×2 (18:04→23:08)
--- NOTE | 2019-03-08 19:49 | CON ---
DATE OF CONSULTATION: 03/08/2019 HISTORY OF PRESENT ILLNESS: Ms. Robbins is an 83-year-old female who sustained an impacted femoral neck fracture of the right hip on or about 02/22/2019. She was discharged on 02/24/2019. She was seen by me in the office last week. She was doing fairly well, though the daughter reports that the day before she came and saw me, she had a very good day and was very active. The patient states that without a history of trauma or increased activity, last night her pain significantly increased. She was brought to the emergency room. The x-rays revealed a nondisplaced spiral type fracture in the subtrochanteric region, which appears to be starting at the heads of the two screws that were placed for her subcapital femoral neck fracture. The patient denies any neurologic complaints. PAST MEDICAL HISTORY: Medical illnesses; hypertension, chronic bronchitis, shingles, cataracts, gastroesophageal reflux disease. CURRENT MEDICATIONS: 1. Diltiazem. 2. Amantadine. 3. Aspirin. ALLERGIES: LEVAQUIN, PENICILLIN, RELAFEN. PAST SURGICAL HISTORY: Cholecystectomy, tonsillectomy, cataract surgery, ovarian tumor removal, percutaneous pinning of subcapital femoral neck fracture of the right hip earlier this month. PHYSICAL EXAMINATION: GENERAL: The patient is a pleasant female, alert and oriented x3. VITAL SIGNS: The patient is afebrile. Blood pressure 177/85, respiratory rate 14, pulse 80, O2 saturation 96% on room air. HEENT: Unremarkable for age. Cranial nerves 2 through 12 are grossly intact. NECK: Has good range of motion without pain. BACK: Thoracic and lumbar spine are nontender to palpation. LUNGS: Clear bilaterally. HEART: Regular rate and rhythm. ABDOMEN: Soft and nontender. Bowel sounds positive. EXTREMITIES: The patient has good range of motion in both upper extremities and left lower extremity. The patient has pain with any attempts of movement of the right hip. Right lower extremity is neurovascularly intact. LABORATORY DATA: White count 13.1, hemoglobin 12.6, hematocrit 38.9. IMPRESSION: 1. Nondisplaced subtrochanteric fracture of the right proximal femur. 2. The patient is status post percutaneous pinning of the subcapital femoral neck fracture earlier this month. 3. Hypertension. 4. Gastroesophageal reflux disease. 5. Chronic bronchitis. PLAN: The patient will require open reduction and internal fixation of the right proximal femur. We will plan on placing an intramedullary adarsh into the femur. Potential risks with the condition of surgery include, but are not limited to, infection, bleeding, pain, damage to blood vessels or nerves, nonunion, malunion, and the patient may require additional surgery. The patient's questions were answered and agreed to the procedure. Job ID: [id number]
--- NOTE | 2019-03-08 20:39 | OP ---
DATE OF PROCEDURE: 03/08/2019 PREOPERATIVE DIAGNOSES: 1. Subtrochanteric fracture of the right proximal femur. 2. Retained hardware in the right proximal femur. POSTOPERATIVE DIAGNOSES: 1. Subtrochanteric fracture of the right proximal femur. 2. Retained hardware in the right proximal femur. PROCEDURES: Removal of hardware from the right proximal femur and then interlocking intramedullary rodding of the right femur utilizing a trochanteric fixation nail. ANESTHESIA: General. TECHNIQUE: The patient was given preoperative IV antibiotics, taken to operating room, placed in the supine position. Satisfactory general anesthesia was performed. The patient was then placed on the fracture table. All bony prominences were well padded. C-arm was used to verify continued good alignment of the subcapital femoral neck fracture as well as the subtrochanteric fracture. The lateral aspect of the right hip and thigh were sterilely prepped and draped. A longitudinal incision was made on the proximal lateral thigh and under fluoroscopic visualization, the two 6.5 cannulated screws that were placed into the femoral neck and into the femoral head were located and removed through a separate longitudinal incision approximately 3.5 inches in length proximal to the greater trochanter. C-arm was used to place a guidewire through the greater trochanter. This was then over-reamed and a trochanteric fixation nail that was 9 mm in diameter and 320 mm in length was inserted well past the subtrochanteric fracture through the previous incision on the proximal and lateral aspect of the thigh. A 90 mm fenestrated screw was placed through the trochanteric fixation down into the femoral neck and into the head. The locking mechanism was then used to lock the screw to the adarsh using a separate small incision in the lateral aspect of the distal thigh. A 5.0 locking screw was placed into the distal femur and the distal aspect of the adarsh. This was all performed under fluoroscopic visualization using the C-arm. The wounds were then copiously irrigated with antibiotic solution and the wounds were closed closing the iliotibial band with #2 Vicryl. The fat and subcutaneous tissue were closed with #1 and 0 Vicryl and the skin was closed with skin christel. Sterile dressing was applied. The patient was then taken off the fracture table. She was awakened, extubated, and transferred to recovery room in stable condition. ESTIMATED BLOOD LOSS: 100 mL. COMPLICATIONS: None. Job ID: [id number]
[2019-03-08] MEDS: Ferrous Gluconate 324 MG TAB PO SCH (21:16)
[2019-03-08] MEDS: Aspirin 81 mg Enteric Coated Tablet PO SCH (21:18)
[2019-03-08] MEDS: Senokot S 8.6-50 MG TAB PO SCH (21:20)
[2019-03-08] MEDS: Clindamycin/D5W 900 MG in Premix Bag 1 BAG IVPB SCH (21:23)
[2019-03-08] MEDS: Melatonin 3 MG TAB PO SCH (21:47)
--- NOTE | 2019-03-09 04:21 | PRG ---
DATE OF SERVICE: 03/09/2019 SUBJECTIVE: The patient was admitted early this morning status post some right hip pain on the side that she had just recently had percutaneous screws placed. Radiographs showed a subtrochanteric femur fracture and today she underwent removal of the hardware from her original fracture and then had an intramedullary rodding performed. The patient tolerated this procedure well. Postoperatively, she was tolerating a diet. Her pain was controlled. Due to the timing of her returning to the surgical floor, she did not work with therapy today. OBJECTIVE: VITAL SIGNS: Stable. The patient is afebrile. GENERAL: The patient is resting comfortably in bed. She is awake, alert, and oriented. [place] Coma Scale is 15. LUNGS: Clear to auscultation bilaterally. HEART: Regular rate and rhythm. ABDOMEN: Soft, flat, nontender with active bowel sounds. EXTREMITIES: Neurovascularly intact x4. Postop dressing is clean, dry, and intact. ASSESSMENT AND PLAN: 1. Status post closed reduction and percutaneous pinning on 02/21/2019, presented to the emergency department with right hip pain starting 2 to 3 days ago. 2. Status post open reduction and internal fixation of acute nondisplaced proximal femur fracture. 3. History of hypertension, gastroesophageal reflux disease, bronchitis, osteoarthritis, cataracts, and shingles. PLAN: Plan will be to continue supportive care and begin physical and occupational therapy tomorrow and discuss placement at that time. Job ID: [id number]
[2019-03-09 05:29] LABS: #Basophils 0.1 thou/uL (0.0-0.2); #Eosinphils 0.3 thou/uL (0.0-0.7); #Lymphocytes 1.4 thou/uL (1.20-3.40); #Neutrophils 9.5 thou/uL (1.40-6.50); %Basophils 0.4 % (0.0-1.0); %Eosinophils 2.1 % (0.0-10.0); %Lymphocytes 11.4 % (21.0-51.0); %Monocytes 8.4 % (0.0-10.0); %Neutrophils 77.7 % (42.0-75.0); Hemoglobin 11.7 g/dL (12.0-16.0); Mean Corpuscular HGB CONC 32.1 g/dL (32.0-36.0); Mean Corpuscular Hemoglobin 30.5 pg (27.0-31.0); Mean Corpuscular Volume 94.9 fL (78.0-98.0); Mean Platelet Volume 7.3 fL (7.4-10.4); Platelet Count 390 thou/uL (130-400); RBC Distribution Width 12.4 % (11.5-14.5); Red Blood Cell (RBC) Count 3.83 mill/uL (4.20-5.40); White Blood Cell (WBC) Count 12.2 thou/uL (4.8-10.8)
[2019-03-09] MEDS: Clindamycin/D5W 900 MG in Premix Bag 1 BAG IVPB SCH ×2 (05:30→07:45)
[2019-03-09] MEDS: Ibuprofen 600 MG TAB PO SCH (05:30)
[2019-03-09] MEDS: Acetaminophen 500 MG TAB PO SCH ×4 (05:30→23:59)
[2019-03-09] MEDS: Ketorolac Tromethamine 30 MG/ML VIAL IM SCH (05:31)
[2019-03-09 05:48] LABS: Anion Gap 11 mmol/L (10-20); BUN (Urea Nitrogen) 13 mg/dL (9.8-20.1); Calc. Creatinine Clearance 67 mL/min (70-130); Calcium 8.4 mg/dL (7.8-10.44); Carbon Dioxide 29 mmol/L (23-31); Chloride 100 mmol/L (98-107); Estimated GFR-MDRD 74; Glucose 85 mg/dL (83-110); Potassium 3.2 mmol/L (3.5-5.1); Sodium 137 mmol/L (136-145)
[2019-03-09] MEDS: Sodium Chloride 0.9% 1,000 ML IV SCH (06:09)
[2019-03-09 06:19] LABS: Magnesium 1.8 mg/dL (1.6-2.6)
[2019-03-09] MEDS: Senokot S 8.6-50 MG TAB PO SCH ×2 (08:36→20:28)
[2019-03-09] MEDS: Famotidine 20 MG TAB PO SCH ×3 (08:37→20:24)
[2019-03-09] MEDS: Ferrous Gluconate 324 MG TAB PO SCH ×2 (08:37→20:25)
[2019-03-09] MEDS: Multivitamin W/ Minerals 1 TAB PO SCH (08:37)
[2019-03-09] MEDS: Aspirin 81 mg Enteric Coated Tablet PO SCH ×2 (08:37→20:23)
[2019-03-09] MEDS: Polyethylene Glycol 3350 17 GM Packet PO SCH (08:38)
[2019-03-09] MEDS ORDERED: Potassium Chloride 40 MEQ, Magnesium Sulfate 2 GM in Sodium Chloride 0.9% 250 ML 250 ML IVPB SCH (09:15)
[2019-03-09] MEDS ORDERED: traMADol HCl 50 MG TAB PO PRN (10:26)
[2019-03-09] MEDS ORDERED: Ibuprofen 600 MG TAB PO PRN (10:27)
[2019-03-09] MEDS: traMADol HCl 50 MG TAB PO SCH ×2 (14:16→20:25)
--- NOTE | 2019-03-09 16:52 | PRG ---
DATE OF SERVICE: 03/09/2019 SUBJECTIVE: Ms. Robbins is an 83-year-old female, status post closed reduction and percutaneous pinning on February 21. Patient admitted with right hip pain and sustained a proximal femur fracture. The patient underwent ORIF of right femur fracture. Postop the patient reports doing good. Pain is well controlled. Vital signs stable. She tolerated her regular diet. OBJECTIVE: GENERAL: Patient lying in bed, comfortable with no acute respiratory distress. VITAL SIGNS: Temperature is 98.1, heart rate 95, respiratory rate 14, O2 saturation 95% on room air, and blood pressure 122/77. LUNGS: Clear bilaterally. HEART: Regular rate and rhythm. ABDOMEN: Soft, nondistended. EXTREMITIES: Neurovascularly intact x4. Postop dressing clean, dry, intact. ASSESSMENT: 1. Status post fall. 2. Right femur fracture, status post open reduction and internal fixation of right femur fracture. 3. History of chronic bronchitis. 4. Gastroesophageal reflux disease. 5. Hypertension. PLAN: Continue supportive care. Continue pain control. Continue DVT prophylaxis. The patient to continue working with PT/OT. Anticipate placement in rehabilitation facility. Job ID: [id number]
--- NOTE | 2019-03-09 20:00 | PRG ---
DATE OF SERVICE: 03/09/2019 SUBJECTIVE: Patient is one day status post removal of hardware from the proximal right femur with insertion of a long trochanteric fixation nail and additional cannulated screw into the femoral neck and head. Patient states that she has quite a bit of pain, but it is a little better than preoperatively. She has been able to sit up on the side of the bed with Physical Therapy today. OBJECTIVE: VITAL SIGNS: Patient is afebrile. Blood pressure 148/81, respiratory rate 18, pulse 88, and O2 saturation 94% on room air. EXTREMITIES: The right lower extremity is neurovascularly intact. LABORATORY: Shows white count 12.2, hemoglobin 11.7, and hematocrit 36.4. Chemistries are normal, except for slightly low potassium of 3.2. PLAN: The patient will continue to work with Physical and Occupational Therapy. Plan at discharge is to go to [facility] facility. She is looking at a [facility] facility in [facility]. The adult protective caseworker is working on that with her. In the meantime, she will continue to work with Physical Therapy. Job ID: [id number]
[2019-03-09] MEDS: Melatonin 3 MG TAB PO SCH (20:28)
--- NOTE | 2019-03-10 01:42 | PRG ---
DATE OF SERVICE: 03/10/2019 SUBJECTIVE: The patient remains on the surgical floor. She is status post open reduction and internal fixation of a right femur fracture. The patient had undergone previous procedure and subsequently had a fracture below that. Postoperatively, she has done well. Her pain is controlled. She has begun working with Physical and Occupational Therapy, and she is discussing her placement options. OBJECTIVE: VITAL SIGNS: Stable. The patient is afebrile. GENERAL: The patient is resting comfortably in bed. She is awake and appropriate. LUNGS: Her respirations are nonlabored. Her postop dressings are clean, dry, and intact. EXTREMITIES: Neurovascularly intact. ASSESSMENT: 1. Status post closed reduction and percutaneous pinning of right hip on 02/21/2019. 2. Status post open reduction and internal fixation of right hip fracture on 03/08/2019. 3. History of hypertension, gastroesophageal reflux disease, bronchitis, osteoarthritis, cataracts, and shingles. PLAN: Plan will be to continue supportive care. Encourage physical and occupational therapy and await placement decision. Job ID: [id number]
[2019-03-10] MEDS: Acetaminophen 500 MG TAB PO SCH ×4 (05:02→23:59)
[2019-03-10 05:45] LABS: Hemoglobin 11.6 g/dL (12.0-16.0); Mean Corpuscular HGB CONC 31.8 g/dL (32.0-36.0); Mean Corpuscular Volume 94.5 fL (78.0-98.0); Mean Platelet Volume 7.4 fL (7.4-10.4); Platelet Count 365 thou/uL (130-400); RBC Distribution Width 12.3 % (11.5-14.5); Red Blood Cell (RBC) Count 3.87 mill/uL (4.20-5.40); White Blood Cell (WBC) Count 11.1 thou/uL (4.8-10.8)
[2019-03-10 06:10] LABS: Anion Gap 10 mmol/L (10-20); BUN (Urea Nitrogen) 12 mg/dL (9.8-20.1); Calc. Creatinine Clearance 71 mL/min (70-130); Calcium 8.6 mg/dL (7.8-10.44); Carbon Dioxide 29 mmol/L (23-31); Chloride 101 mmol/L (98-107); Estimated GFR-MDRD 80; Glucose 81 mg/dL (83-110); Magnesium 2.3 mg/dL (1.6-2.6); Phosphorus 2.3 mg/dL (2.3-4.7); Potassium 3.5 mmol/L (3.5-5.1); Sodium 136 mmol/L (136-145)
[2019-03-10] MEDS: Multivitamin W/ Minerals 1 TAB PO SCH (08:06)
[2019-03-10] MEDS: Senokot S 8.6-50 MG TAB PO SCH ×2 (08:06→20:06)
[2019-03-10] MEDS: Aspirin 81 mg Enteric Coated Tablet PO SCH ×2 (08:06→20:07)
[2019-03-10] MEDS: Ferrous Gluconate 324 MG TAB PO SCH ×2 (08:06→20:07)
[2019-03-10] MEDS: Famotidine 20 MG TAB PO SCH ×2 (08:07→20:06)
[2019-03-10] MEDS: traMADol HCl 50 MG TAB PO SCH ×3 (08:07→20:07)
[2019-03-10] MEDS: Polyethylene Glycol 3350 17 GM Packet PO SCH (08:07)
[2019-03-10] MEDS ORDERED: PHOS-NAK 1 PKT PACK PO SCH (09:15)
--- NOTE | 2019-03-10 15:20 | PRG ---
DATE OF SERVICE: 03/10/2019 This is Tyree Salas PA-C dictating a report for Huey Corado DO. SUBJECTIVE: Ms. Robbins is an 83-year-old female, who is hospital day #2, postop day 1, status post ORIF of the right femoral shaft fracture. She did have a little bit of trouble with pain overnight, it is improving now. She is tolerating diet, awaiting rehab in [place] and awaiting insurance authorization. The patient is working with PT and OT. PHYSICAL EXAMINATION: VITAL SIGNS: Temperature is 98.0, blood pressure is 172/75, heart rate is 83, respiratory rate is 16, and she is saturating 92% on room air. GENERAL: An 83-year-old female, sitting up in bed, in no acute distress. HEENT: Normocephalic and atraumatic. RESPIRATORY: Equal rise and fall, bilateral breath sounds, clear to auscultation. Getting IS around 1500. CARDIOVASCULAR: Regular rate and rhythm. ABDOMEN: Soft and nontender. PELVIS: Stable. MUSCULOSKELETAL: She has dressing applied to the right lower extremity. She has good sensation. NEUROLOGIC: Alert, oriented to person, place, time and event. PSYCH: Normal mood and affect. LABORATORY DATA: From today, her sodium is 136, potassium 3.5, chloride is 101, CO2 is 29, creatinine is 0.7, BUN of 12, glucose is 81, mag of 2.3, phos of 2.3. White blood cell count is 11.1, platelets are 365, hemoglobin and hematocrit are 11.6 and 36.5 respectively. ASSESSMENT AND PLAN: 1. Acute traumatic pain. 2. Status post percutaneous pinning of the right hip on 02/21, now status post open reduction and internal fixation of the hip on 03/08. 3. History of hypertension, reflux, bronchitis, osteoarthritis, cataracts, and zoster. PLAN: 1. Continue pain control. 2. Continue to work with PT and OT. 3. We will resume NSAIDs to increase pain control. 4. Continue all other supportive care. Awaiting insurance authorization for rehab placement. The patient was seen by Dr. Huey Corado. Plan can be updated as needed. Job ID: [id number]
[2019-03-10] MEDS: Carvedilol 3.125 MG TAB PO SCH (17:10)
[2019-03-10] MEDS: Melatonin 3 MG TAB PO SCH (20:07)
--- NOTE | 2019-03-11 01:32 | PRG ---
DATE OF SERVICE: 03/10/2019 SUBJECTIVE: The patient was seen this evening during rounds. She was resting comfortably and asleep with no signs of acute distress. Nursing reported no acute events. OBJECTIVE: VITAL SIGNS: Temperature 97.6, pulse 75, respirations 18, oxygen saturation 94% on room air, and blood pressure 158/76. GENERAL: Elderly female, lying in bed, asleep, but no signs of acute distress. PULMONARY: Equal chest rise and fall. No signs of acute respiratory distress. ASSESSMENT: 1. Status post pain with ambulation after percutaneous screw pinning of the right hip. 2. Right-sided proximal femur fracture, status post repair. 3. History of gastroesophageal reflux disease, cataracts, shingles, osteoarthritis, chronic bronchitis, and hypertension. PLAN: Continue current diet and pain regimen. Continue physical and occupational therapy. The patient is pending placement at a halfway facility. Job ID: [id number]
[2019-03-11] MEDS: Acetaminophen 500 MG TAB PO SCH ×2 (06:34→12:07)
[2019-03-11] MEDS: Aspirin 81 mg Enteric Coated Tablet PO SCH (08:28)
[2019-03-11] MEDS: Famotidine 20 MG TAB PO SCH (08:28)
[2019-03-11] MEDS: Multivitamin W/ Minerals 1 TAB PO SCH (08:29)
[2019-03-11] MEDS: Ferrous Gluconate 324 MG TAB PO SCH (08:29)
[2019-03-11] MEDS: Carvedilol 3.125 MG TAB PO SCH (08:29)
[2019-03-11] MEDS: traMADol HCl 50 MG TAB PO SCH ×2 (08:29→14:28)
[2019-03-11] MEDS: Senokot S 8.6-50 MG TAB PO SCH (08:33)
[2019-03-11] MEDS: Polyethylene Glycol 3350 17 GM Packet PO SCH (08:44)
[2019-03-11 15:57] VITALS: BP 117/67; TEMP 98.1
== END 2019-03-11 16:50 | DRG 482 ==
LOC: ERS 02:30 → OBSVTOIN 04:06 → SURG A 04:06 → ERS 05:18
PROVIDERS: ADMIT Surgery; ATTEND Surgery
PROC: 0QH604Z Insertion of Internal Fixation Device into Right Upper Femur, Open Approach (ICD-10-PCS; principal; 2019-03-08)
PROC: 0QP604Z Removal of Internal Fixation Device from Right Upper Femur, Open Approach (ICD-10-PCS; 2019-03-08)
DX: S72.24XA Nondisplaced subtrochanteric fracture of right femur, initial encounter for closed fracture (principal); I10 Essential (primary) hypertension; K21.9 Gastro-esophageal reflux disease without esophagitis; J42 Unspecified chronic bronchitis; H26.9 Unspecified cataract; B02.9 Zoster without complications; W19.XXXA Unspecified fall, initial encounter; Z79.899 Other long term (current) drug therapy; Z79.82 Long term (current) use of aspirin; Z88.1 Allergy status to other antibiotic agents; Z88.0 Allergy status to penicillin; Z88.8 Allergy status to other drugs, medicaments and biological substances
CPT/HCPCS: 36415; 72170; 76000; 80048; 80053; 83735; 84100; 85025; 85027; 93005; C1713; C1769; J0171; J0360; J1885; J2001; J2370; J2550; J2704; J3010; J3475; J3480; J3490; J7050; S0020